=== PATIENT | female | born 1955 | race Caucasian/White ===

== ENCOUNTER 2016-07-30 03:08 | Observation (INO) | payer MEDICARE ==
--- NOTE | 2016-07-30 03:24 | ED ---
General Adult HPI - General Chief complaint: Recheck/Abnormal Lab/Rx Stated complaint: poss med reaction Time Seen by Provider: 07/30/16 03:23 Source: patient, RN notes reviewed, old records reviewed Mode of arrival: wheelchair Limitations: no limitations - History of Present Illness Initial comments: This is a 61-year-old female ER for evaluation of anxiety, medication reaction. Patient is taking Ativan and Xanax to help her sleep, those are not helping Nexium having opposite effect making her restless making her agitated and anxious. Patient has taken multiple sleep aids in the past with help, recent change in insurance cost resources to benzodiazepines, these are not helping. Patient has no other complaints. - Related Data Home Medications Medication Instructions Recorded Confirmed OXcarbazepine [Trileptal] 300 mg PO QAM 01/08/14 07/30/16 levETIRAcetam [Keppra] 500 mg PO BID 01/08/14 07/30/16 Budesonide-Formot 160-4.5 Mcg 2 puff PO RT-BID 02/12/14 07/30/16 [Symbicort 160-4.5 Mcg Inhaler] Simvastatin [Zocor] 40 mg PO HS 02/17/14 07/30/16 ALPRAZolam [Xanax] 0.25 mg PO TID PRN 06/27/14 07/30/16 HYDROcodone/APAP 5-325MG [E[place]ett 1 - 2 tab PO Q6HR PRN 06/27/14 07/30/16 5-325] Montelukast Sodium [Singulair] 10 mg PO HS 06/27/14 07/30/16 Aspirin 81 mg PO DAILY 08/17/15 07/30/16 Calcium Carbonate [Calcium] 600 mg PO BID 08/17/15 07/30/16 Denosumab [Prolia] 60 mg SQ DIRECTED 08/17/15 07/30/16 Gamaguard Infusion 20 gram IV QMONTH 08/17/15 07/30/16 OXcarbazepine [Trileptal] 450 mg PO HS 08/17/15 07/30/16 Promethazine HCl/Codeine 5 ml PO Q6HR PRN 08/17/15 07/30/16 [Prometh-Codein 6.25-10 mg/5 ml] Promethazine [Phenergan] 12.5 mg PO Q6HR PRN 08/17/15 07/30/16 Ubidecarenone [Co Q-10] 800 mg PO DAILY 08/17/15 07/30/16 Levothyroxine Sodium [Synthroid] 50 mcg PO DAILY 11/03/15 07/30/16 Valsartan [Diovan] 160 mg PO DAILY 11/03/15 07/30/16 Eszopiclone [Lunesta] 2 mg PO HS 07/19/16 07/30/16 LORazepam [Ativan] 1 mg PO HS 07/30/16 07/30/16 Allergies Allergy/AdvReac Type Severity Reaction Status Date / Time No Known Allergies Allergy Verified 07/19/16 08:53 Review of Systems ROS Statement: Those systems with pertinent positive or pertinent negative responses have been documented in the HPI. ROS Other: All systems not noted in ROS Statement are negative. Past Medical History Past Medical History: COPD, Diabetes Mellitus, Hyperlipidemia, Hypertension Additional Past Medical History / Comment(s): OSTEOPOROSIS,EPILEPSY, MITOCHONDRIAL DISEASE,HEARING LOSS History of Any Multi-Drug Resistant Organisms: None Reported Date of last positivie culture/infection: 2011 MDRO Source:: stool Past Surgical History: Breast Surgery Additional Past Surgical History / Comment(s): R SUBCLAVIAN PORTNew Power port implanted - 08-08-, colostomy Past Anesthesia/Blood Transfusion Reactions: No Reported Reaction Past Psychological History: No Psychological Hx Reported Additional Psychological History / Comment(s): R/T TO ALL RECENT HEALTH ISSUES Smoking Status: Never smoker Past Alcohol Use History: None Reported Past Drug Use History: None Reported - Past Family History Sister(s) Family Medical History: Cancer Additional Family Medical History / Comment(s): Uterine CA Mother Family Medical History: Diabetes Mellitus General Exam Limitations: no limitations General appearance: alert, in no apparent distress, anxious Head exam: Present: atraumatic, normocephalic, normal inspection Eye exam: Present: normal appearance, PERRL, EOMI. Absent: scleral icterus, conjunctival injection, periorbital swelling ENT exam: Present: normal exam, mucous membranes moist Neck exam: Present: normal inspection. Absent: tenderness, meningismus, lymphadenopathy Respiratory exam: Present: normal lung sounds bilaterally. Absent: respiratory distress, wheezes, rales, rhonchi, stridor Cardiovascular Exam: Present: regular rate, normal rhythm, normal heart sounds. Absent: systolic murmur, diastolic murmur, rubs, gallop, clicks GI/Abdominal exam: Present: soft, normal bowel sounds. Absent: distended, tenderness, guarding, rebound, rigid Extremities exam: Present: normal inspection, full ROM, normal capillary refill. Absent: tenderness, pedal edema, joint swelling, calf tenderness Back exam: Present: normal inspection Neurological exam: Present: alert, oriented X3, CN II-XII intact Psychiatric exam: Present: normal affect, normal mood Skin exam: Present: warm, dry, intact, normal color. Absent: rash Course Vital Signs 07/30/16 03:12 Temperature 97.0 F L Pulse Rate 76 Respiratory 20 Rate Blood Pressure 177/83 O2 Sat by Pulse 97 Oximetry Medical Decision Making - Medical Decision Making 61 female here for evaluation of increased anxiety attack secondary to medication. Medication reaction secondary to benzodiazepines. Patient encouraged not to no longer take benzodiazepines, given Ambien and Benadryl for calming, patient can be discharged home Disposition Clinical Impression: Anxiety, Medication reaction Disposition: HOME SELF-CARE Condition: Good Instructions: Anxiety (ED), Lorazepam (By mouth) Referrals: Garry Medina MD [Primary Care Provider] - 1-2 days
[2016-07-30] MEDS ORDERED: diphenhydrAMINE 50 MG/ML 1 ML VIAL IM STA (03:57)
[2016-07-30] MEDS ORDERED: ZOLPIDEM 5 MG TAB PO STA (03:57)
[2016-07-30] MEDS ORDERED: MORPHINE SULFATE 4 MG/ML SYRINGE IV STA (05:16)
[2016-07-30] MEDS ORDERED: LORazepam 2 MG/ML SYRINGE IV STA (05:16)
[2016-07-30] MEDS ORDERED: SODIUM CHLORIDE 0.9% 1,000 ML IV STA ×2 (05:16)
[2016-07-30] MEDS ORDERED: SODIUM CHLORIDE 0.9% 500 ML IV STA (05:16)
--- NOTE | 2016-07-30 05:19 | ED ---
Medical Decision Making - Medical Decision Making 61 female the ER for evaluation. We are reevaluating patient at this time, patient was brought to the ER originally for accidental overdose with agitation own medications, and wanted side effect secondary to medication. In attempt to help and decrease patient's headache agitation with Benadryl and Ambien, patient became even more loopy, this time patient will be requiring sedation for protecting oversaw office she is incoherent, and unable to follow direction. Visual be admitted for monitoring of oxygenation and resolution of medication Disposition Clinical Impression: Anxiety, Medication reaction, Accidental drug ingestion, Altered mental state Disposition: ADMITTED IP TO THIS HOSP Condition: Fair Instructions: Lorazepam (By mouth), Anxiety (ED) Referrals: Garry Medina MD [Primary Care Provider] - 1-2 days
[2016-07-30 06:10] LABS: Basophils % (A) 0 %; CHCM 36.3; Eosinophils # (A) 0.1 k/uL (0-0.7); Eosinophils % (A) 1 %; HCT 38.5 % (34.0-46.0); HDW 2.46; HGB 12.8 gm/dL (11.4-16.0); Luc # (Auto) 0.14; Luc % (Auto) 2; Lymphocytes # (A) 2.1 k/uL (1.0-4.8); Lymphocytes % (A) 22 %; MCH 29.5 pg (25.0-35.0); MCHC 33.3 g/dL (31.0-37.0); MCV 88.5 fL (80.0-100.0); Monocytes # (A) 0.6 k/uL (0-1.0); Monocytes % (A) 7 %; Neutrophils # (A) 6.3 k/uL (1.3-7.7); Neutrophils % (A) 68 %; RBC 4.35 m/uL (3.80-5.40); RDW 12.1 % (11.5-15.5); WBC 9.2 k/uL (3.8-10.6); WBC (Perox) 9.49
[2016-07-30 06:35] LABS: Prothrombin Time 10.4 sec (9.0-12.0)
[2016-07-30 06:38] LABS: Partial Thromboplastin Time 131.9 sec (22.0-30.0)
[2016-07-30 06:59] LABS: ALT 37 U/L (9-52); AST 42 U/L (14-36); Alkaline Phosphatase 67 U/L (38-126); Anion Gap 13 mmol/L; Blood Urea Nitrogen 12 mg/dL (7-17); Calcium 9.6 mg/dL (8.4-10.2); Carbon Dioxide 23 mmol/L (22-30); Chloride 97 mmol/L (98-107); Glucose 96 mg/dL (74-99); Magnesium 1.9 mg/dL (1.6-2.3); Non-African American GFR(MDRD) >60 (>60 ml/min/1.73 sqM); Phosphorous 3.7 mg/dL (2.5-4.5); Potassium 4.1 mmol/L (3.5-5.1); Sodium 133 mmol/L (137-145); Total Bilirubin 0.6 mg/dL (0.2-1.3); Total Protein 7.5 g/dL (6.3-8.2)
[2016-07-30 07:00] LABS: Creatine Kinase 94 U/L (30-135)
[2016-07-30 07:03] VITALS: BMI 30.7
[2016-07-30 07:13] LABS: Creatine Kinase MB 1.5 ng/mL (0.0-2.4); Troponin I <0.012 ng/mL (0.000-0.034)
[2016-07-30 12:05] LABS: Glucose,Whole Blood 90 mg/dL (75-99)
[2016-07-30] MEDS: INSULIN LISPRO (humaLOG) 300 UNIT/3 ML VIAL SQ SCH ×3 (12:48→21:37)
--- NOTE | 2016-07-30 13:57 | HP ---
DATE OF ADMISSION: Chief complaint of altered mental status changes. HISTORY OF PRESENT ILLNESS: Ms. Krueger is a 61-year-old female with a past medical history of COPD, diabetes mellitus, hypertension, hyperlipidemia, mitochondrial disease, hearing loss, coming into the hospital with a chief complaint of altered mental status changes. Patient has history of chronic sleep issues and she is on CPAP machine at night for her sleep apnea. She states that she has been taking Belsomra and later was taking Lunesta for her insomnia symptoms, but due to change in her insurance company she has not been taking this and was seen by her physician who prescribed her Ativan and Xanax to help her sleep. So she has been taking Ativan and Xanax recently for the past 4 to 5 days and she felt that these medications have been making her more anxious, agitated and restless. So when she came into the hospital she was pretty much drowsy, but was able to awake on calling her name but she falls back to sleep pretty soon. As she was agitated, patient was given Ambien in the ED so she pretty much has been sleeping well through the night and this morning when I woke her up she seems to complain of her insomnia and sleep issues persistently demanding that she has to be on something to calm her down. But once she stopped the conversation, patient falls back to sleep quite comfortably. Currently, I do not see any signs of agitation or anxiety. Her is at the bedside. But the patient dozes off to sleep soon. REVIEW OF SYSTEMS: CONSTITUTIONAL: Denies having any history of weight loss, fever, chills or rigors. CARDIOVASCULAR: No chest pain or palpitations. GI: No abdominal pain, nausea, vomiting, or diarrhea. RESPIRATORY: No cough. No difficulty in breathing. : No dysuria or hematuria. IMMUNOLOGICAL: Patient does not complain of any allergies. HEMATOLOGICAL: No history of easy bruising or recurrent infections. MUSCULOSKELETAL: Patient has chronic osteoarthritis. All 13 review of systems are done and negative except for the ones mentioned in the HPI. Past medical history is significant for COPD, diabetes mellitus, hypertension, hyperlipidemia, mitochondrial disorder, seizure disorder, hearing loss. ALLERGIES: No known drug allergies. Patient's home medications are: 1. Trileptal 300 mg p.o. q.a.m. 2. Keppra 500 mg p.o. b.i.d. 3. Symbicort 160/4.5 two puffs b.i.d. 4. Simvastatin 40 mg p.o. q.h.s. 5. Xanax 0.25 mg p.o. 3 times a day p.r.n. for anxiety. 6. [place] 5/325 one to two tablets q.6 hours p.r.n. for pain. 7. Singulair 10 mg p.o. q.h.s. 8. Aspirin 81 mg p.o. daily. 9. Calcium carbonate 600 mg p.o. b.i.d. 10. Prolia 60 mg subcu as directed. 11. Gammagard infusion 20, grams IV every month. 12. Trileptal 450 mg p.o. q.h.s. 13. Promethazine codeine 5 mL q.6 hours p.r.n. for cough. 14. Coenzyme Q 1000 mg p.o. daily. 15. Levothyroxine 50 mcg p.o. daily. 16. Valsartan 160 mg p.o. daily. 17. Lunesta 2 mg p.o. q.h.s. 18. Ativan 1 mg p.o. q.h.s. SOCIAL HISTORY: Never a smoker. No alcohol use. PAST SURGICAL HISTORY: The patient has a Mediport in place as she gets Gammagard infusions every month. Family history is positive for uterine cancer in her sister and diabetes mellitus in her mother. Patient's vitals on examination temperature 99.2, heart rate 74, respiratory rate 18, blood pressure 159/76, saturating at 96% on room air. GENERAL EXAMINATION: Obese female, lying in bed, appears to be no acute distress. HEAD: Atraumatic, normocephalic. EYES: Pupils round and reactive to light. No pallor. No icterus. NECK: No JVD. No thyromegaly. CARDIAC: S1, S2 heard. No additional sounds. RESPIRATORY: Bilateral breath sounds are positive. No wheeze or crackles. ABDOMEN: Soft, nontender. Bowel sounds are positive. Difficult to appreciate organomegaly due to obese body habitus. EXTREMITIES: No edema. No cyanosis. No clubbing. Peripheral pulses felt. NEUROLOGICAL/TECHNICAL SALES ADVISOR: Alert, awake, oriented x3. No focal deficits. PSYCHIATRIC: Appropriate mood and affect. SKIN: No rashes. The patient's labs: White count of 9.2, hemoglobin is 12.8, platelets 356. Sodium 133, potassium 4.1, chloride 97, bicarb 23. BUN 12, creatinine 0.50. AST 42, ALT 37. Albumin 4.3. ASSESSMENT AND PLAN: 1. Encephalopathy, most likely secondary to medication withdrawal. 2. History of seizure disorder. 3. Chronic obstructive pulmonary disease. 4. Type 2 diabetes mellitus. 5. Essential hypertension. 6. Hyperlipidemia, mixed type. 7. Chronic obstructive pulmonary disease, chronic bronchitis. 8. Mitochondrial disease. 9. Hearing loss. 10. Osteoporosis. PLAN: Plan is to get UDS on her. Will monitor the patient for any benzo withdrawal symptoms. Now will give her Ativan on p.r.n. basis. Further recommendations to follow depending on the progress of the patient. The plan was discussed with the patient and the who is at the bedside. SERGIO
[2016-07-30] MEDS: ENOXAPARIN 40 MG/0.4 ML SYRINGE SQ SCH (14:29)
[2016-07-30] MEDS: levETIRAcetam 500 MG TAB PO SCH ×2 (14:50→21:29)
[2016-07-30] MEDS: VALSARTAN 160 MG TAB PO SCH (14:50)
[2016-07-30] MEDS: LEVOTHYROXINE 50 MCG TAB PO SCH (14:50)
[2016-07-30] MEDS: OXcarbazepine 300 MG TAB PO SCH (14:50)
[2016-07-30 16:05] LABS: Hemoglobin A1C 5.1 % (4.2-6.1)
[2016-07-30 16:09] LABS: Glucose,Whole Blood 98 mg/dL (75-99)
[2016-07-30] MEDS ORDERED: ALPRAZolam 0.25 MG TAB PO PRN (17:36)
[2016-07-30] MEDS ORDERED: ONDANSETRON 4 MG TAB PO PRN (17:36)
[2016-07-30] MEDS: HYDROcodone/APAP 5-325MG 1 EACH TAB PO PRN (17:46)
[2016-07-30] MEDS: SYMBICORT 160-4.5 MCG INHALER INHALATION SCH (19:23)
[2016-07-30] MEDS: SODIUM CHLORIDE 0.9% 1,000 ML IV SCH ×2 (20:05→20:06)
[2016-07-30 20:17] LABS: Glucose,Whole Blood 78 mg/dL (75-99)
[2016-07-30] MEDS ORDERED: OXcarbazepine 150 MG TAB PO SCH (21:00)
[2016-07-30] MEDS ORDERED: MONTELUKAST 10 MG TAB PO SCH (21:00)
[2016-07-30] MEDS ORDERED: ATORVASTATIN 20 MG TAB PO SCH (21:00)
[2016-07-31] MEDS: SODIUM CHLORIDE 0.9% 1,000 ML IV SCH (04:39)
[2016-07-31] MEDS: LEVOTHYROXINE 50 MCG TAB PO SCH (05:33)
[2016-07-31 05:45] VITALS: RESP 16
[2016-07-31] MEDS: HYDROcodone/APAP 5-325MG 1 EACH TAB PO PRN (06:55)
[2016-07-31 07:04] LABS: Glucose,Whole Blood 84 mg/dL (75-99)
[2016-07-31] MEDS: INSULIN LISPRO (humaLOG) 300 UNIT/3 ML VIAL SQ SCH ×2 (07:40→14:00)
[2016-07-31 07:51] LABS: Basophils % (A) 1 %; CHCM 34.9; Eosinophils # (A) 0.1 k/uL (0-0.7); Eosinophils % (A) 2 %; HCT 36.5 % (34.0-46.0); HDW 2.37; HGB 12.1 gm/dL (11.4-16.0); Luc # (Auto) 0.16; Luc % (Auto) 3; Lymphocytes # (A) 1.6 k/uL (1.0-4.8); Lymphocytes % (A) 27 %; MCH 30.4 pg (25.0-35.0); MCHC 33.1 g/dL (31.0-37.0); MCV 91.8 fL (80.0-100.0); Mean Platelet Volume 6.6; Monocytes # (A) 0.4 k/uL (0-1.0); Monocytes % (A) 8 %; Neutrophils # (A) 3.5 k/uL (1.3-7.7); Neutrophils % (A) 60 %; RBC 3.98 m/uL (3.80-5.40); RDW 12.4 % (11.5-15.5); WBC 5.9 k/uL (3.8-10.6)
[2016-07-31 08:04] LABS: Anion Gap 10 mmol/L; Blood Urea Nitrogen 7 mg/dL (7-17); Calcium 9.2 mg/dL (8.4-10.2); Carbon Dioxide 24 mmol/L (22-30); Chloride 102 mmol/L (98-107); Glucose 83 mg/dL (74-99); Non-African American GFR(MDRD) >60 (>60 ml/min/1.73 sqM); Potassium 4.1 mmol/L (3.5-5.1); Sodium 136 mmol/L (137-145)
[2016-07-31] MEDS: SYMBICORT 160-4.5 MCG INHALER INHALATION SCH (08:25)
[2016-07-31] MEDS: OXcarbazepine 300 MG TAB PO SCH (09:44)
[2016-07-31] MEDS: ENOXAPARIN 40 MG/0.4 ML SYRINGE SQ SCH (09:44)
[2016-07-31] MEDS: VALSARTAN 160 MG TAB PO SCH (09:44)
[2016-07-31] MEDS: levETIRAcetam 500 MG TAB PO SCH (09:44)
[2016-07-31 11:34] VITALS: BP 143/91; PULSE 70; TEMP 98.2
[2016-07-31 12:03] LABS: Glucose,Whole Blood 77 mg/dL (75-99)
--- NOTE | 2016-07-31 14:37 | DS ---
DATE OF ADMISSION: 07/30/2016 DATE OF DISCHARGE: HOSPITAL COURSE: Ms. Krueger is a 61-year-old female with a past medical history of COPD, diabetes mellitus, hypertension, hyperlipidemia, mitochondrial disorder, hearing loss, coming into the hospital with a chief complaint of altered mental status changes. Patient has been started on a new medications for her insomnia as her insurance does not approve Belsomra that she has been taking. She tried to take Xanax and also was taking her other pain medications, which is [place]. Patient presented to the hospital feeling more anxious, agitated and restless. After coming to the hospital, the patient was given Ambien after which her symptoms did subside. Patient was probably sleep deprived and slept during her hospital stay. Patient was placed on BiPAP machine at night and she also is on oxygen at home. The rest of her medications were resumed and her mentation became back to baseline. She is stable for discharge. This was explained in detail with her and her who is at the bedside. Patient's vitals at the time of discharge: Temperature 98.2 ( )107/91, saturating at 95% on room air. HEAD: No pallor. No icterus. NECK: No JVD. CARDIOVASCULAR: S1, S2 heard. LUNGS: Bilateral breath sounds are positive. No wheezing or crackles. ABDOMEN: Soft. EXTREMITIES: No swelling. Patient's labs at the time of discharge are white count of 5.9, hemoglobin is 12.1, platelets of 327, sodium 136, potassium 4.1, chloride 102, bicarb 24, BUN 7, creatinine 0.56. DISCHARGE DIAGNOSES: 1. Anxiety and agitation, most like secondary to benzo withdrawal. 2. History of seizure disorder. 3. Chronic obstructive pulmonary disease. 4. Type 2 diabetes mellitus. 5. Hypertension. 6. Hyperlipidemia. 7. Chronic obstructive pulmonary disease. 8. Chronic bronchitis. 9. Mitochondrial disease. 10. Hearing loss. 11. Osteoporosis. PLAN: The plan is to discharge the patient back on her home medications. Patient's discharge medications are as follows: 1. Keppra 500 mg p.o. b.i.d. 2. Symbicort 160/4.5, 2 puffs b.i.d. 3. Zocor 40 mg p.o. q.h.s. 4. Xanax 0.25 mg p.o. 3 times a day p.r.n. for anxiety. 5. Singulair 10 mg p.o. q.h.s. 6. Aspirin 81 mg p.o. daily. 7. Calcium carbonate 600 mg p.o. b.i.d. 8. Prolia 60 mg subcu once every 6 months. 9. Gammagard infusion 20 mg IV once a month 10. Trileptal 450 mg p.o. q.h.s. 11. Coenzyme-Q 100 mg p.o. daily. 12. Levothyroxine 50 mcg p.o. daily. 13. Losartan 160 mg p.o. daily. 14. Sliding scale of insulin. 15. Zofran 8 mg p.o. q.h.s. p.r.n. for nausea and vomiting. 16. Belsomra 10 mg p.o. q.h.s. 17. Trileptal 300 mg p.o. q.a.m. The patient is being discharged home in stable condition. Diet is low-salt and low carb diet. Activity as tolerated. FOLLOW-UP INSTRUCTIONS: I advised her to make followup appointment with Dr. Medina within 2 to 3 days. More than 35 minutes spent towards the discharge of the patient.
== END 2016-07-31 14:15 | disposition home or self-care (01) ==
LOC: EC 03:08 → 3OBS 05:19
PROVIDERS: ADMIT Hospitalist; ATTEND Hospitalist
DX: T42.4X1A Poisoning by benzodiazepines, accidental (unintentional), initial encounter (principal); T47.1X1A Poisoning by other antacids and anti-gastric-secretion drugs, accidental (unintentional), initial encounter; R45.1 Restlessness and agitation; G92 Toxic encephalopathy; E11.9 Type 2 diabetes mellitus without complications; E78.2 Mixed hyperlipidemia; F41.9 Anxiety disorder, unspecified; G40.909 Epilepsy, unspecified, not intractable, without status epilepticus; E88.40 Mitochondrial metabolism disorder, unspecified; G47.00 Insomnia, unspecified; R51 Headache; G47.30 Sleep apnea, unspecified; I10 Essential (primary) hypertension; J44.9 Chronic obstructive pulmonary disease, unspecified; M81.0 Age-related osteoporosis without current pathological fracture; Z79.82 Long term (current) use of aspirin; Z79.51 Long term (current) use of inhaled steroids; Z79.899 Other long term (current) drug therapy
CPT/HCPCS: 99285; 96372; 96361; 94640 ×2; 93005; 80053; 80048; 83036; 82550; 82553; 83735; 84100; 84484; 85025 ×2; 85610; 85730; 80306; G0378 ×2; J1200; J1642; J1650 ×2; 96374

== ENCOUNTER → 2016-12-09 | Outpatient (CLI) | payer MEDICARE ==
[2016-12-10 12:01] LABS: IgG Subclass 3 15.3 mg/dL (11.0-85.0); IgG Subclass 4 22.1 mg/dL (3.0-175.0)
== END | disposition home or self-care (01) ==
LOC: LABWHC1 11:05
PROVIDERS: ATTEND Internal Medicine Critical Care Medicine
DX: D83.8 Other common variable immunodeficiencies (principal)
CPT/HCPCS: 36415; 82784; 82787

== ENCOUNTER → 2017-01-17 | Outpatient (CLI) | payer MEDICARE ==
--- NOTE | 2017-01-17 20:45 | PN ---
DATE OF SERVICE: 01/17/2017 This is a 61-year-old female patient coming in for a yearly check regarding obstructive sleep apnea. The patient was diagnosed having BALTAZAR with an AHI of 15. Concurrently she is on a CPAP pressure of 10 cm of water. Over the past one year she has been doing well. She has been losing weight. She has been very compliant with her CPAP treatment. She has been seeing adequate clinical response. Her CPAP compliancy is 100%. She is averaging around 7.2 hours of CPAP use every night. Her leak factor is 11 L and her AHI is down to 3 while on treatment. She is using AirFit P10 nasal pillows. The patient is using trazodone for sleep induction at a dose of 100 mg at bedtime. No major hypersomnia or sleepiness during the day. She had experienced significant side effects with Lunesta, and that was discontinued. Trazodone has been doing a good job with sleep induction and maintenance. BP is 132/77, pulse 69, respirations 16. Body weight is 163. Height is 4 feet 9 inches. Neck size is 16- 1/2. [place] score is 8. Temperature 97.8. Pulse ox 95% on room air. GENERAL APPEARANCE: Calm, comfortable. HEENT: Short neck. Crowding of the posterior pharynx. No goiter or neck mass. LUNGS: Clear to auscultation. Heart sounds are regular rate and rhythm. Normal S1, S2. ABDOMEN: Soft, non-tender. No organomegaly. EXTREMITIES: No edema. No cyanosis or clubbing. IMPRESSION: 1. Symptomatic obstructive sleep apnea; AHI of 15; currently undergoing successful CPAP therapy with a pressure of 10. 2. Sleep induction ( ) on trazodone with good clinical response. 3. Obesity; body mass index of 35. 4. Polo syndrome. PLAN: 1. Continue CPAP therapy at the same level of pressure. 2. Compliancy was checked. 3. Renew CPAP supplies. 4. See me back in a year's time or earlier if needed. SERGIO
== END | disposition home or self-care (01) ==
LOC: SLEEP 14:22
PROVIDERS: ATTEND Internal Medicine Critical Care Medicine
DX: G47.33 Obstructive sleep apnea (adult) (pediatric) (principal); E66.9 Obesity, unspecified; Q96.9 Turner's syndrome, unspecified; Z68.35 Body mass index [BMI] 35.0-35.9, adult

== ENCOUNTER → 2017-03-10 | Outpatient (CLI) | payer MEDICARE ==
--- NOTE | 2017-03-10 11:22 | US ---
EXAMINATION TYPE: US kidneys/renal and bladder DATE OF EXAM: 03/10/2017 COMPARISON: US December 25, [address] & [address] May 06, 2014. CLINICAL HISTORY: N17.9 Acute Kidney Failure. Abnormal labs EXAM MEASUREMENTS: Right Kidney: 10.5 x 4.4 x 4.3 cm Left Kidney: 10.9 x 4.8 x 4.6 cm Post Void Residual Volume: 16.9 mL Right Kidney: Appeared wnl Left Kidney: Appeared wnl Bladder: wnl Bilateral Jets seen: No Normal Post Void Residual: Yes There is no evidence for hydronephrosis at this point in time. No nephrolithiasis is seen. No stephanie s are identified. The urinary bladder is anechoic. Bilateral ureteral jets are not clearly seen. IMPRESSION: No hydronephrosis is evident bilaterally.
== END | disposition home or self-care (01) ==
LOC: RADUSWWP 10:39
PROVIDERS: ATTEND Family Medicine
DX: N17.9 Acute kidney failure, unspecified (principal)
CPT/HCPCS: 76770

== ENCOUNTER → 2017-03-22 | Outpatient (CLI) | payer MEDICARE ==
--- NOTE | 2017-03-22 10:01 | BD ---
EXAMINATION TYPE: MG DEXA axial skeleton. DATE OF EXAM: 03/22/2017 COMPARISON: Prior DEXA bone scan November 10, 2014. CLINICAL HISTORY: Postmenopausal female Height: 5 FT Weight: 160 FRAX RISK QUESTIONS: Alcohol (3 or more units per day): NO Family History (Parent hip fracture): YES Glucocorticoids (More than 3mos): NO (Ex: prednisone, prednisolone, methylprednisolone, dexamethasone, and hydrocortisone). History of Fracture in Adulthood: YES Secondary Osteoporosis: 1. Type 1 Diabetes: NO 2. Hyperthyroidism: NO 3. 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 Malnutrition: NO 5. Chronic liver disease: NO Rheumatoid Arthritis: NO Current Tobacco Use: NO RISK FACTORS HISTORY OF: History of Wrist Fracture: RT X 2 When: ONCE IN HER 30'S AND SECOND TIME AGE 58 Postmenopausal woman: BORN WITHOUT OVARIAN FUNCTION Take estrogen and/or progesterone medications: TOOK HRT FROM AGE 14 UNTIL HER 30'S MEDICATIONS: Thyroid Medications: YES Which medication: LEVOTHYROXINE How Lon-2 YRS Osteoporosis Medications: YES Which medication: PROLIA How Long: SEV YEARS Additional Medications: VALSARTAN, LEVETIRACETAM, OXCARBAZEPINE, SIMVASTATIN, MONTELUKAST, LEVOTHYROX INE,PROCHLORPERAZINE, SYMBICORT, NORCO, ALPRAZOLAM, ALBUTEROL, NOVOLOG, CALCIUM, Additional History: EXAM MEASUREMENTS: Bone mineral densitometry was performed using the Rysto System. Bone mineral density as measured about the Lumbar spine is: ----- L1-L4(G/cm2): 0.841 T Score Values are as follows: ----- L2: -3.7 ----- L3: -3.5 ----- L4: -1.4 ----- L1-L4: -2.8 Bone mineral density has: Increased 3.5% since study of: 2014 Bone mineral density about the R hip (g/cm2): 0.698 Bone mineral density about the L hip (g/cm2): 0.637 T Score values are as follows: -----R Neck: -2.4 -----L Neck: -2.9 -----R Total: -2.3 -----L Total: -2.5 Bone mineral density has: Increased 3.7 % since study of: 2015 IMPRESSION: Osteoporosis (T Score less than -2.5) as noted by T Score values at the low back and left hip remains present. Bone density is however slightly increased or improved from prior. There remains increased fracture risk and therapy is usually indicated based on age. Re-Screen 1-2 years. NOTE: T-SCORE=SD OF THE YOUNG ADULT MEAN.
--- NOTE | 2017-03-23 13:07 | MM ---
Reason for exam: screening (asymptomatic). Last mammogram was performed 1 year and 4 months ago. History: Patient is postmenopausal and is nulliparous. Family history of breast cancer in maternal grandmother at age 60. Benign right mammotome panel of the right breast, April 16, 2008. Took estrogen for 14 years beginning at age 14. Physical Findings: A clinical breast exam by your physician is recommended on an annual basis and results should be correlated with mammographic findings. MG 3D Screening Mammo W/Cad Bilateral CC and MLO view(s) were taken. Prior study comparison: November 24, 2015, bilateral MG 3d screening mammo w/cad. January 08, 2014, bilateral MG screening mammo w CAD. The breast tissue is almost entirely fat. Previous mammotome biopsy in the right breast. There is chronic nodularity bilaterally. No significant changes when compared with prior studies. ASSESSMENT: Negative, BI-RAD 1 RECOMMENDATION: Routine screening mammogram of both breasts in 1 year.
== END | disposition home or self-care (01) ==
LOC: RADBDWWP 09:20
PROVIDERS: ATTEND Family Medicine
DX: Z12.31 Encounter for screening mammogram for malignant neoplasm of breast (principal); M81.0 Age-related osteoporosis without current pathological fracture; Z78.0 Asymptomatic menopausal state
CPT/HCPCS: 77080; 77063; G0202

== ENCOUNTER → 2018-04-10 | Outpatient (CLI) | payer MEDICARE, BC ==
--- NOTE | 2018-04-10 19:18 | PN ---
PROGRESS NOTE Glory is 63. She is doing well. She is coming to see me for an annual check regarding her BALTAZAR treatment. She was diagnosed having mild BALTAZAR with an AHI of 15 and currently she is on CPAP therapy at a pressure of 10 cm of water. She is known to have obesity, Polo's syndrome, hypothyroidism, and history of CVID and she has a port. She used to receive IVIg in the past. Currently she is off. In terms of her sleep apnea, she is well treated. She is able to initiate and maintain sleep. She is on trazodone 100 mg at bedtime. She is waking up alert and refreshed during the day. She is very compliant with her CPAP unit and she has been using it every night. Her compliance for more than 4 hours is 100%. Her average CPAP use is around 8.5 hours per night with a leak factor of 32 L and AHI while on treatment as low as 5. REVIEW OF SYSTEMS: Twelve-point review of systems was done. Positive findings are mentioned above in the history of present illness. The patient has no interval weight gain or weight loss. No aerophagia. No nocturnal nausea or vomiting. No nocturnal abdominal pain or distention. No nocturnal chest pain or shortness of breath. PHYSICAL EXAMINATION: BP is 165/80, pulse 80, respiratory rate 16, temperature 97.7, saturation 98% on room air. Weight is 158, height 4 feet 9 inches. GENERAL APPEARANCE: Calm, comfortable. Head is atraumatic, normocephalic. NECK: Supple. There is no JVD. No goiter or neck masses. LUNGS: Diminished; otherwise clear. HEART: Heart sounds are regular rate and rhythm. Normal S1, S2. No S3, S4. No murmurs. ABDOMEN: Soft, nontender. No organomegaly. EXTREMITIES: No edema. No cyanosis or clubbing. NEUROLOGIC: Patient is alert and oriented x3. There is no focal neurological deficit. IMPRESSION: 1. Symptomatic obstructive sleep apnea with an apnea/hypopnea index of 15. She continues to undergo CPAP therapy successfully. The patient is also utilizing trazodone at bedtime for sleep induction and chronic depression. Compliance data was reviewed. Clinically she continues to improve. 2. Obesity. 3. Polo's syndrome. 4. Hypothyroidism. PLAN: Continue CPAP therapy. Renew the supplies. Encourage weight loss. Optimize sleep hygiene measures. Will continue to follow. MMODL / IJN: [id number] /
== END ==
LOC: SLEEP 15:10
PROVIDERS: ATTEND Internal Medicine Critical Care Medicine
DX: G47.33 Obstructive sleep apnea (adult) (pediatric) (principal); E03.9 Hypothyroidism, unspecified; Q96.9 Turner's syndrome, unspecified; F32.9 Major depressive disorder, single episode, unspecified; Z99.89 Dependence on other enabling machines and devices; Z79.899 Other long term (current) drug therapy; E66.9 Obesity, unspecified

== ENCOUNTER → 2018-05-11 | Outpatient (CLI) | payer MEDICARE, BC ==
[~2018-05-11] MED LIST: DENOSUMAB 60 MG/ML 1 ML SYRINGE SQ ONE
[2018-05-11 09:42] VITALS: BP 162/79; PULSE 68; RESP 16; TEMP 97.5
== END | disposition home or self-care (01) ==
LOC: PROCWHC3 09:26
PROVIDERS: ATTEND Family Medicine
DX: M81.0 Age-related osteoporosis without current pathological fracture (principal)
CPT/HCPCS: 96372; J0897

== ENCOUNTER → 2018-06-12 | Outpatient (CLI) | payer MEDICARE, BC ==
--- NOTE | 2018-06-14 10:49 | MM ---
Reason for exam: screening (asymptomatic). Last mammogram was performed 1 year and 3 months ago. History: Patient is postmenopausal and is nulliparous. Family history of breast cancer in maternal grandmother at age 60. Benign right mammotome panel of the right breast, April 16, 2008. Took estrogen for 14 years beginning at age 14. Physical Findings: A clinical breast exam by your physician is recommended on an annual basis and results should be correlated with mammographic findings. MG 3D Screening Mammo W/Cad Bilateral CC and MLO view(s) were taken. Prior study comparison: March 22, 2017, bilateral MG 3d screening mammo w/cad. November 24, 2015, bilateral MG 3d screening mammo w/cad. There are scattered fibroglandular densities. There are benign appearing bilateral intramammary lymph nodes, stable. Benign appearing bilateral calcifications. No suspicious abnormality. Right biopsy marker noted. No significant changes when compared with prior studies. ASSESSMENT: Benign, BI-RAD 2 RECOMMENDATION: Routine screening mammogram of both breasts in 1 year.
== END | disposition home or self-care (01) ==
LOC: RADMAMWWP 07:56
PROVIDERS: ATTEND Family Medicine
DX: Z12.31 Encounter for screening mammogram for malignant neoplasm of breast (principal)
CPT/HCPCS: 77063; 77067

== ENCOUNTER → 2018-11-27 | Outpatient (CLI) | payer MEDICARE, BC ==
[2018-11-27 12:51] VITALS: BP 160/92; PULSE 60; RESP 16; TEMP 97.8
== END ==
LOC: PROCWHC3 12:29
PROVIDERS: ATTEND Family Medicine
DX: M81.0 Age-related osteoporosis without current pathological fracture (principal)
CPT/HCPCS: 96372; J0897

== ENCOUNTER → 2019-08-28 | Outpatient (CLI) | payer MEDICARE, BC ==
--- NOTE | 2019-08-28 15:14 | BD ---
EXAMINATION TYPE: Axial Bone Density DATE OF EXAM: 08/28/2019 COMPARISON: 03/22/2017 CLINICAL HISTORY: Height: 58 IN Weight: 151 LBS FRAX RISK QUESTIONS: Family History (Parent hip fracture): YES MOTHER History of Fracture in Adulthood: RT WRIST AGE 59 AND 64 Secondary Osteoporosis: 3. Menopause before 43: PT STATES SHE WAS BORN WITHOUT OVARIES RISK FACTORS HISTORY OF: History of Wrist Fracture: YES RT WRIST AGE 59 AND 62 Active: LIMITED Diet low in dairy products/other sources of calcium: YES Postmenopausal woman: PT BORN WITH NO OVARIES Take estrogen and/or progesterone medications: NOT NOW How long: AGE 16-30 MEDICATIONS: Thyroid Medications: YES Which medication: Levothyroxine How Lon + YEARS Osteoporosis Medications: YES Which medication: Prolia How Lon YEARS Additional Medications: LEVOTHYROXINE, PROLIA INJ, SEIZURE MEDS, CHOLESTEROL MEDS, HIGH BLOOD PRESSUR E MEDS, INSULIN, PAIN MED, EXAM MEASUREMENTS: Bone mineral densitometry was performed using the [employer] System. 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
--- NOTE | 2019-08-29 12:14 | MM ---
Reason for exam: screening (asymptomatic). Last mammogram was performed 1 year and 2 months ago. History: Patient is postmenopausal and is nulliparous. Family history of breast cancer in maternal grandmother at age 60. Benign right mammotome panel of the right breast, April 16, 2008. Took estrogen for 14 years beginning at age 14. Physical Findings: A clinical breast exam by your physician is recommended on an annual basis and results should be correlated with mammographic findings. MG 3D Screening Mammo W/Cad Bilateral CC and MLO view(s) were taken. XCCL view(s) were taken of the right breast. Prior study comparison: June 12, 2018, bilateral MG 3d screening mammo w/cad. March 22, 2017, bilateral MG 3d screening mammo w/cad. There are scattered fibroglandular densities. Finding: There are typically benign round, regional calcifications in the anterior position of the left breast. Previous mammotome biopsy in the right breast. There is a chronic nodularity in the left breast. There is no discrete abnormality. ASSESSMENT: Benign, BI-RAD 2 RECOMMENDATION: Routine screening mammogram of both breasts in 1 year.
== END | disposition home or self-care (01) ==
LOC: RADMAMWWP 08:04
PROVIDERS: ATTEND Family Medicine
DX: Z12.31 Encounter for screening mammogram for malignant neoplasm of breast (principal); M85.89 Other specified disorders of bone density and structure, multiple sites; M81.0 Age-related osteoporosis without current pathological fracture
CPT/HCPCS: 77063; 77067; 77080

== ENCOUNTER → 2019-09-03 | Outpatient (CLI) | payer MEDICARE, BC ==
--- NOTE | 2019-09-03 22:06 | PN ---
PROGRESS NOTE Glory is 64, coming in for a routine check regarding her obstructive sleep apnea. The patient has mild to moderate obstructive sleep apnea with an AHI of 15 and currently she is on a CPAP pressure of 10 cm of water. She also has multiple other medical problems and comorbidities. I noted that there has been a significant drop in her hearing. She is currently utilizing an AirFit P10 nose piece along with her CPAP machine. I checked the compliancy data on her CPAP unit, and the patient is very compliant, utilizing around 9.3 hours of CPAP use every night. Her CPAP use for more than 4 hours is 100% with a leak of 26 L/minute. The patient's AHI is down to 3.2. No major hypersomnia or sleepiness during the day. She has some tremors, for which I advised seeing her neurologist. Her weight was back in 2018, and currently she is down to 151. Her bronchial asthma is currently inactive and stable. 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 No other new complaints. She is able to sleep well and her sleep is quite refreshing; she is waking up alert and refreshed during the day. She has history of seizure activity and currently she is on Keppra and oxcarbazepine with adequate clinical response. No nocturnal seizure activity. Blood sugar is under good control for now. No significant anxiety or depression. Her bronchial asthma is currently inactive and stable. REVIEW OF SYSTEMS: Fourteen-point review of system was done. It is positive for some mild weight loss. No major hypersomnia or sleepiness during the day. She is having some tremors. No aerophagia. No abdominal distention or facial pain or sinus infections. She is able to tolerate the nasal pillows without any major difficulties. No episodes of falling asleep during the day. She may take a nap to get herself refreshed in the afternoon. PHYSICAL EXAMINATION: BP is 166/82, pulse 75, respirations 16, temperature 97.7, saturation 96% on room air. Height is 4 feet 10 inches, weight is 151, BMI 31. Colp score is 9. GENERAL APPEARANCE: Calm, comfortable. HEAD: Atraumatic, normocephalic. NECK: Supple. No JVD. No goiter or neck masses. Mallampati class IV. LUNGS: Clear to auscultation. HEART: Heart sounds are regular rate and rhythm. Normal S1, S2. No S3, S4. No murmurs. ABDOMEN: Soft, nontender. No organomegaly. EXTREMITIES: No edema. No cyanosis or clubbing. IMPRESSION: 1. Obstructive sleep apnea, apnea/hypopnea index of 15, currently on CPAP pressure of 10 with excellent clinical response and compliance. 2. Hypersomnia, improved. 3. Hypothyroidism. 4. History of Polo's syndrome. 5. History of CVID. 6. History of depression. 7. History of bronchial asthma. PLAN: 1. Continue CPAP therapy at the same level of pressure. 2. Renew her CPAP supplies. I was able to offer her an AirFit P30 nose pillow as an alternative for her P10 pillow. She was happy with that. She wants to continue her CPAP machine. The treatment is successful. I will see her back in a few years' time in followup. MMODL / MELISSAN: [id number] /
== END | disposition home or self-care (01) ==
LOC: SLEEP 14:28
PROVIDERS: ATTEND Internal Medicine Critical Care Medicine
DX: G47.33 Obstructive sleep apnea (adult) (pediatric) (principal); G47.10 Hypersomnia, unspecified; E03.9 Hypothyroidism, unspecified; Z99.89 Dependence on other enabling machines and devices; Z87.898 Personal history of other specified conditions; Z86.2 Personal history of diseases of the blood and blood-forming organs and certain disorders involving the immune mechanism; Z86.59 Personal history of other mental and behavioral disorders; Z87.09 Personal history of other diseases of the respiratory system

== ENCOUNTER → 2020-02-13 | Outpatient (CLI) | payer MEDICARE, BC ==
--- NOTE | 2020-02-13 10:33 | CT ---
EXAMINATION TYPE: CT iac wo con DATE OF EXAM: 02/13/2020 COMPARISON: None HISTORY: 65 year-old female H91.90, Hearing loss. Rule out cholesteatoma. CT DLP: 150 mGycm Automated exposure control for dose reduction was used. TECHNIQUE: Contiguous high-resolution axial scanning of the temporal bones without IV contrast. Apola nal reformatted images obtained. FINDINGS: Visualized intercranial structures show scattered calcifications within the proximal V4 segments of t he vertebral arteries and also within the carotid siphons. Mild cerebral cortical volume loss. Moderate mucosal thickening right ethmoid air cells and right sphenoid sinus. Leftward nasal septal d eviation. The skull base appears normal. The external auditory canals appear patent. There is opacification throughout the right mastoid air cells extending into the epitympanum and meso tympanum encasing the head of the malleus, partially encasing the manubrium of the malleus, and the e ntire incus. No ossicular erosion is seen. Additional 3.5 mm nodular soft tissue thickening of the inferior right tympanic membrane and infratym panum. The left middle ear cavity and mastoid air cells are well pneumatized. The round and oval windows are normal. No erosion of the scutum. There is no abnormality of bony labyrinths. The vestibular and cochlear aqueducts are well visualized. The facial nerve canal is normal bilaterally. The internal auditory canal and meati are symmetrical bilaterally. Reformatted images confirm above findings. IMPRESSION: 1. Opacification of the right mastoid air cells as well as the right epi- and mesotympanum with parti al encasement of the middle ear ossicles. Otomastoiditis and cholesteatoma are in the differential. N o ossicular or other bony erosions. 2. Additional noncontiguous 3.5 mm nodular soft tissue thickening of the inferior right tympanic memb lissett and infratympanum. Postinflammatory soft tissue thickening versus cholesteatoma are in the diffe rential. 3. Moderate chronic right ethmoid and sphenoid sinus disease.
== END | disposition home or self-care (01) ==
LOC: RADCTMAIN 08:01
PROVIDERS: ATTEND Otolaryngology
DX: H74.8X9 Other specified disorders of middle ear and mastoid, unspecified ear (principal); H73.891 Other specified disorders of tympanic membrane, right ear; H71.90 Unspecified cholesteatoma, unspecified ear; J32.2 Chronic ethmoidal sinusitis; J32.3 Chronic sphenoidal sinusitis
CPT/HCPCS: 70480

== ENCOUNTER → 2020-04-14 | Outpatient (CLI) | payer MEDICARE, BC ==
[~2020-04-14] MED LIST changes: +DENOSUMAB 60 MG/ML 1 ML SYRINGE SQ NR; -DENOSUMAB 60 MG/ML 1 ML SYRINGE SQ ONE
[2020-04-14 09:35] VITALS: BP 155/87; PULSE 55; TEMP 98.3
== END | disposition home or self-care (01) ==
LOC: PROCWHC3 09:14
PROVIDERS: ATTEND Family Medicine
DX: M81.0 Age-related osteoporosis without current pathological fracture (principal)
CPT/HCPCS: 96372; J0897

== ENCOUNTER → 2020-04-16 | Outpatient (CLI) | payer MEDICARE, BC ==
--- NOTE | 2020-04-16 10:08 | CT ---
EXAMINATION TYPE: CT iac wo con DATE OF EXAM: 04/16/2020 COMPARISON: 02/13/2020 HISTORY: 65 year-old female H91.90, severe hearing loss CT DLP: 150 mGycm Automated exposure control for dose reduction was used. TECHNIQUE: Contiguous high-resolution axial scanning of the temporal bones without IV contrast. Paola nal reformatted images obtained. FINDINGS: Redemonstrated are scattered calcifications proximal V4 segments of the vertebral arteries and also w ithin the carotid siphons. Suspect a partially empty sella. Moderate mucosal thickening right ethmoid air cells and right sphenoid sinus and mild within the left ethmoid air cells and left sphenoid sinus. The skull base appears normal. The external auditory canals appear patent. Improving aeration within the right mastoid air cells. There is residual opacification of the inferio r right mastoid air cells and focal opacity measuring 7 x 4 mm at the aditus ad antrum. Minimal resid ual opacity remains along the posterior and medial aspect of the mesotympanum along with similar mild thickening of the inferior right tympanic membrane. Again, no ossicular erosion is identified. No blunting of the scutum. The left mastoid air cells and middle ear cavity remains clear. However, there is now some minimal th ickening or debris noted along the mid aspect of the tympanic membrane, axial image 29. The round and oval windows are normal. There is no abnormality of bony labyrinths. The vestibular and cochlear aqueducts are well visualized. The facial nerve canal is normal bilaterally. The internal auditory canal and meati are symmetrical bilaterally. There is no evidence of fractures. Reformatted images confirm above findings. IMPRESSION: 1. Significantly improving aeration within the right mastoid air cells and right middle ear cavity bu t with residual opacification of the inferior mastoid air cells. Focal 7 x 4 mm opacity remains at th e aditus ad antrum. Some mild residual opacity also remains within the posterior and medial aspect of the mesotympanum along with similar thickening of the inferior right tympanic membrane. 2. Some new mild thickening or adjacent debris involving the left tympanic membrane. 3. Continued moderate chronic right ethmoid and sphenoid sinus disease.
== END | disposition home or self-care (01) ==
LOC: RADCTMAIN 09:12
PROVIDERS: ATTEND Otolaryngology
DX: H73.891 Other specified disorders of tympanic membrane, right ear (principal); J34.89 Other specified disorders of nose and nasal sinuses; R93.89 Abnormal findings on diagnostic imaging of other specified body structures
CPT/HCPCS: 70480

== ENCOUNTER → 2020-11-20 | Outpatient (CLI) | payer MEDICARE ==
--- NOTE | 2020-11-21 02:55 | MR ---
EXAMINATION TYPE: MR brain and iac wo/w con DATE OF EXAM: 11/20/2020 COMPARISON: 10/15/2009 HISTORY: Demyelinating disease, acoustic neuroma, bilateral hearing loss, having surgery on right ear 11-27-20. CONTRAST: Standard multiplanar, multisequence MRI departmental protocol utilizing 7 mL intravenous Gadavist arnie olinium contrast. There is diffuse cerebral cortical atrophy. There is no mass effect nor midline shift. There is no si gn of intracranial hemorrhage. There is a 23 x 8 mm area of enhancement that appears extra-axial in t he left posterior parietal lobe convexity. This is consistent with a meningioma. On the T2 and FLAIR images there are patchy areas of increased signal around the lateral ventricles. There are coalescent areas that measure up to 1 cm in thickness. There are patchy areas of air and gr ay-white matter junction of both cerebral hemispheres measuring up to 8 mm. Total number is approxima tely 15. There is mucosal thickening in the ethmoid sinuses. There is 3 mm focus of increased signal on the right side of the chiqui. There is no evidence of posterior fossa mass. Thin sections through the posterior fossa show normal internal auditory canals. The acoustic nerve an d vestibular nerves appear normal. There is no evidence of cerebellopontine angle mass. The left side cerebellar peduncle is relatively small compared to the right. This is of doubtful significance. Sella turcica appears normal. Optic chiasm appears normal. There is no evidence of a sellar mass. The re is normal enhancement of the venous sinuses. IMPRESSION: Mild cerebral atrophy. White matter signal changes in both cerebral hemispheres is nonspecific and co uld relate to demyelinating disease or chronic small vessel ischemia. This shows significant progress ion compared to old exam 11 years ago. There is extra-axial mass in the left posterior parietal convexity consistent with meningioma measuri ng up to 11 mm in thickness.
== END | disposition home or self-care (01) ==
LOC: RADMRIMAIN 21:07
PROVIDERS: ATTEND Otolaryngology
DX: G37.9 Demyelinating disease of central nervous system, unspecified (principal); G31.9 Degenerative disease of nervous system, unspecified; D33.3 Benign neoplasm of cranial nerves
CPT/HCPCS: 70553; A9585

== ENCOUNTER → 2021-01-19 | Outpatient (CLI) | payer MEDICARE ==
[2021-01-20 06:49] LABS: Levetiracetam (Keppra) 7.1 ug/mL (3.0-60.0)
== END | disposition home or self-care (01) ==
LOC: LABWHC1 10:34
PROVIDERS: ATTEND Psychiatry & Neurology Neurology
DX: G40.209 Localization-related (focal) (partial) symptomatic epilepsy and epileptic syndromes with complex partial seizures, not intractable, without status epilepticus (principal)
CPT/HCPCS: 36415; 80177; 80183

== ENCOUNTER → 2021-03-26 | Outpatient (CLI) | payer MEDICARE ==
--- NOTE | 2021-03-26 12:34 | FL ---
EXAMINATION TYPE: FL UGI w esophagus DATE OF EXAM: 03/26/2021 10:47 AM COMPARISON: NONE CLINICAL HISTORY: R10.31 Epigastric pain Preliminary view of the abdomen reveals a normal bowel gas pattern. Upper GI examination was performed according to the air contrast technique. Barium and effervescent crystal was swallowed without difficulty or delay. Esophageal peristalsis and motility are within no rmal limits. There is no evidence for esophagitis, intraluminal mass, hiatal hernia or gastroesophag eal reflux. The stomach has a normal appearance in terms of its size, shape and location. No gastri c filling defects or ulcer craters are seen. The duodenal bulb and sweep are also free of intralumin al lesion or ulcer crater. And single contrast cervical esophagram was also performed following the ingestion of thin liquid bar ium. There is no evidence for aspiration or penetration. No masses are seen. No filling defects ar e evident. IMPRESSION: Unremarkable evaluation.
== END | disposition home or self-care (01) ==
LOC: RADUSWWP 09:55
PROVIDERS: ATTEND Family Medicine
DX: R10.31 Right lower quadrant pain (principal)
CPT/HCPCS: 74240

== ENCOUNTER → 2021-05-07 | Day surgery (SDC) | payer MEDICARE ==
[2021-05-04 15:27] VITALS: BMI 25.7
[~2021-05-07] MED LIST changes: +ACETAMINOPHEN TAB 500 MG TAB PO PRN; +BUPIVACAINE (PF) 0.25% 30 ML VIAL SQ ONE; -DENOSUMAB 60 MG/ML 1 ML SYRINGE SQ NR; +DEXAMETHASONE SOD PHOSPHATE 4 MG/ML 1 ML VIAL IVP ONE; +DEXAMETHASONE SOD PHOSPHATE 4 MG/ML 1 ML VIAL ONE; +HEPARIN SODIUM,PORCINE/PF 5,000 UNIT/0.5 ML SYRINGE SQ PRN; +HYDROmorphone 0.5 MG/0.5 ML SYRINGE IVP PRN; +KETOROLAC 15 MG/ML 1 ML VIAL ONE; +LACTATED RINGERS 1,000 ML IV SCH; +LIDOCAINE 1% (10MG/ML) FOR IV START INTRADERMA PRN; +NALOXONE 0.4 MG/ML 1 ML VIAL IV PRN; +ONDANSETRON 4 MG/2 ML VIAL IVP ONE; +ONDANSETRON 4 MG/2 ML VIAL ONE; +PROPOFOL 10 MG/ML 20 ML VIAL IV ONE; +fentaNYL (PF) 50 MCG/ML 2 ML AMP ONE
[2021-05-07 07:04] VITALS: RESP 16; TEMP 98
[2021-05-07 07:16] LABS: Glucose,Whole Blood 88 mg/dL (75-99)
--- NOTE | 2021-05-07 07:43 | P.GSHP ---
History of Present Illness H&P Date: 05/07/21 Chief Complaint: Malfunctioning Port-A-Cath 66-year-old female has a Port-A-Cath in place for many years. Apparently this is her second port. She has not been using the port. It appears that was initially placed for poor IV access. Has not been flushed in over one year. Here to have port removed. Past Medical History Past Medical History: COPD, CVA/TIA, Diabetes Mellitus, Hyperlipidemia, Hypertension, Seizure Disorder Additional Past Medical History / Comment(s): OSTEOPOROSIS,EPILEPSY,MITOCHONDRIAL DISEASE,HEARING LOSS-with rt cochlear implant, hearing aid left ear diet controlled diabetes, perforated diverticulitis has colostomy History of Any Multi-Drug Resistant Organisms: None Reported Date of last positivie culture/infection: 2011 MDRO Source:: stool Past Surgical History: Breast Surgery Additional Past Surgical History / Comment(s): R SUBCLAVIAN PORT,New Power port implanted - 08-08-14, colostomy Past Anesthesia/Blood Transfusion Reactions: No Reported Reaction Smoking Status: Never smoker - Past Family History Sister(s) Family Medical History: Cancer, Pulmonary Embolus Additional Family Medical History / Comment(s): Uterine CA Mother Family Medical History: Diabetes Mellitus Medications and Allergies Home Medications Medication Instructions Recorded Confirmed Type levETIRAcetam [Keppra] 500 mg PO BID 01/08/14 05/07/21 History Simvastatin [Zocor] 40 mg PO HS 02/17/14 05/07/21 History ALPRAZolam [Xanax] 0.25 mg PO TID PRN 06/27/14 05/07/21 History Montelukast Sodium [Singulair] 10 mg PO HS 06/27/14 05/07/21 History Aspirin 81 mg PO DAILY 08/17/15 05/07/21 History Calcium Carbonate [Calcium] 600 mg PO DAILY 08/17/15 05/07/21 History Denosumab [Prolia] 60 mg SQ Q180D 08/17/15 05/07/21 History OXcarbazepine [Trileptal] 450 mg PO HS 08/17/15 05/07/21 History Ubidecarenone [Co Q-10] 100 mg PO DAILY 08/17/15 05/07/21 History Levothyroxine Sodium [Synthroid] 50 mcg PO DAILY 11/03/15 05/07/21 History OXcarbazepine [Trileptal] 300 mg PO QAM tab 07/31/16 05/07/21 Rx traZODone HCL [Desyrel] 100 mg PO HS 09/20/16 05/07/21 History Losartan [Cozaar] 25 mg PO DAILY 06/11/18 05/07/21 History Omeprazole 20 mg PO DAILY 05/04/21 05/07/21 History Allergies Allergy/AdvReac Type Severity Reaction Status Date / Time lorazepam [From Ativan] AdvReac Hallucinati Verified 05/07/21 06:56 ons Surgical - Exam Vital Signs Temp Pulse Resp BP Pulse Ox 98.0 F 64 16 153/73 95 05/07/21 07:03 05/07/21 07:03 05/07/21 07:03 05/07/21 07:03 05/07/21 07:03 Physical exam: General: Well-developed, well-nourished HEENT: Normocephalic, sclerae nonicteric Abdomen: Nontender, nondistended Extremities: No edema Neuro: Alert and oriented Chest: Right-sided Port-A-Cath Assessment and Plan (1) Poor intravenous access Narrative/Plan: Will proceed with Port-A-Cath removal at this time Current Visit: Yes Status: Acute Code(s): Z78.9 - OTHER SPECIFIED HEALTH STATUS SNOMED Code(s): 707726453
[2021-05-07 08:22] VITALS: BP 159/72
--- NOTE | 2021-05-07 08:26 | P.OP ---
Date of Procedure: 05/07/21 Procedure(s) Performed: PREOPERATIVE DIAGNOSIS: Poor IV access, Port-A-Cath malfunction POSTOPERATIVE DIAGNOSIS: Same PROCEDURE: Port-A-Cath removal SURGEON: Ross EBL: Minimal ANESTHESIA: Sedation COMPLICATIONS: None OPERATIVE PROCEDURE: Patient was placed in the supine position. The patient was sedated per anesthesia that time. The chest was prepped and draped in the usual sterile fashion. The skin was localized with Marcaine solution. The previous incision was re-incised using a scalpel. The port was easily excised using accommodation of blunt dissection sharp dissection and electrocautery. The subcutaneous tissues were reapproximated using 3-0 Vicryl sutures. The skin was reapproximated using 4-0 Monocryl sutures. Skin glue was then applied. DISPOSITION: Stable to recovery room
[2021-05-07 08:35] LABS: Glucose,Whole Blood 92 mg/dL (75-99)
[2021-05-07 08:41] VITALS: PULSE 56
== END ==
LOC: OR 06:30
PROVIDERS: ATTEND Surgery
DX: Z45.2 Encounter for adjustment and management of vascular access device (principal); I10 Essential (primary) hypertension; E11.9 Type 2 diabetes mellitus without complications; E78.5 Hyperlipidemia, unspecified; G40.909 Epilepsy, unspecified, not intractable, without status epilepticus; J44.9 Chronic obstructive pulmonary disease, unspecified; M81.0 Age-related osteoporosis without current pathological fracture; Z79.82 Long term (current) use of aspirin; Z83.3 Family history of diabetes mellitus; Z86.73 Personal history of transient ischemic attack (TIA), and cerebral infarction without residual deficits; Z93.3 Colostomy status
CPT/HCPCS: 36590; J1100; J2405; J3010; J2704; J1644

== ENCOUNTER → 2021-06-11 | Outpatient (CLI) | payer MEDICARE ==
[2021-06-11 13:54] LABS: African American GFR (CKD) >90 (>60 ml/min/1.73 sqM); Blood Urea Nitrogen 15 mg/dL (7-17); Non-African American GFR(CKD) >90 (>60 ml/min/1.73 sqM)
--- NOTE | 2021-06-11 14:59 | CT ---
EXAMINATION TYPE: CT abdomen pelvis w con DATE OF EXAM: 06/11/2021 COMPARISON: 05/06/2014 HISTORY: abdominal pain, nausea CT DLP: 574.9 mGycm Automated exposure control for dose reduction was used. TECHNIQUE: Helical acquisition of images was performed from the lung bases through the pelvis. CONTRAST: Performed with Oral Contrast and with IV Contrast, patient injected with 100 mL of Isovue 300. FINDINGS: The visualized lung bases are clear. Gallbladder is normal without gallstones, pericholecystic fluid, gallbladder wall thickening or diste ntion. There is no biliary ductal dilatation. No focal mass or organomegaly involving the liver, pancreas, spleen or adrenal glands. Kidneys excrete contrast promptly and symmetrically and there is no solid renal mass or hydronephrosi s. There is no retroperitoneal adenopathy or hemorrhage in the caliber of the abdominal aorta is norm al. The bowel loops are normal in caliber. There has been a left hemicolectomy and there is an ostomy in the left lower quadrant of the abdomen. There appears to be a neorectum there is a small ventral midl ine hernia containing large bowel loops but no evidence of bowel wall ischemia or obstruction. There are no inflammatory changes in the mesentery and there is no free intraperitoneal air. There is no pelvic mass, free fluid, abscess or adenopathy. There has been a hysterectomy. The osseous structures are intact. IMPRESSION: 1. Ventral midline hernia containing large bowel loop without evidence of bowel wall ischemia or obst ruction. 2. Left hemicolectomy with left lower quadrant ostomy. 3. No bowel obstruction, free intraperitoneal air or fluid. 4. Hysterectomy.
== END | disposition home or self-care (01) ==
LOC: RADCTMAIN 12:28
PROVIDERS: ATTEND Internal Medicine Gastroenterology
DX: K43.9 Ventral hernia without obstruction or gangrene (principal); R10.13 Epigastric pain; Z90.79 Acquired absence of other genital organ(s)
CPT/HCPCS: 82565; 84520; 74177; 36415; Q9967

== ENCOUNTER → 2021-09-14 | Outpatient (CLI) | payer MEDICARE ==
--- NOTE | 2021-09-14 12:36 | FL ---
EXAMINATION TYPE: FL barium swallow w video DATE OF EXAM: 09/14/2021 MODIFIED SWALLOW / DEGLUTITION STUDY CLINICAL HISTORY: Dysphagia. Chronic cough. History of Winn's esophagus. TECHNIQUE: Deglutition study is performed utilizing thin liquid barium, honey and nectar thick liqui d barium, barium thick applesauce, and barium coated cracker. 1.12 minutes of fluoro time and 0 imag es obtained. COMPARISON: None. FINDINGS: Slightly suboptimal due to patient constantly touching neck and movement. The oral and phar yngeal phases show satisfactory initiation and propagation with all modalities tested. Satisfactory m astication is seen with solid modalities tested. There is no evidence of penetration or aspiration w ith any modality tested. No significant pharyngeal residue was appreciated. IMPRESSION: No penetration or aspiration observed. Please refer to speech therapist notes for further details if necessary.
== END | disposition home or self-care (01) ==
LOC: RADFLMAIN 11:37
PROVIDERS: ATTEND Family Medicine
DX: R13.10 Dysphagia, unspecified (principal)
CPT/HCPCS: 74230